=== PATIENT | female | born 1960 | race Caucasian/White ===

== ENCOUNTER 2020-06-22 08:49 | Emergency (ER) | payer OTHER ==
[~2020-06-22] VITALS: Ht 160 cm; Wt 78.0 kg
[2020-06-22 08:58] VITALS: BP 141/56
[2020-06-22 10:10] LABS: BASOPHILS % (AUTO) 0.6 % (0.0-2.0); EOSINOPHILS # (AUTO) 0.1 K/uL (0-0.4); EOSINOPHILS % (AUTO) 1.4 % (0.0-4.0); LYMPHOCYTES # (AUTO) 0.7 K/uL (2.5-16.5); LYMPHOCYTES % (AUTO) 9.9 % (20.5-51.1); MEAN CORPUSCULAR HEMOGLOBIN 31 pg (27-31); MEAN CORPUSCULAR HGB CONC 33 g/dL (33-37); MEAN CORPUSCULAR VOLUME 93.4 fL (80-94); MONOCYTES # (AUTO) 0.4 K/uL (0.8-1.0); MONOCYTES % (AUTO) 6.4 % (1.7-9.3); NEUTROPHILS # (AUTO) 5.6 K/uL (1.8-7.7); NEUTROPHILS % (AUTO) 81.7 % (42.2-75.2); PLATELET COUNT (AUTO) 225 K/uL (140-450); RED CELL DISTRIBUTION WIDTH 14.3 % (11.6-13.7); WHITE BLOOD COUNT (AUTO) 6.8 K/uL (4.8-10.8)
[2020-06-22 10:14] LABS: HEMATOCRIT 15.9 % (36-48); HEMOGLOBIN 5.3 g/dL (12.0-16.0)
[2020-06-22 10:33] LABS: ALBUMIN 2.9 g/dL (3.4-5.0); ANION GAP 23.5 (8-16); CARBON DIOXIDE 18.1 mmol/L (21-32); POTASSIUM 4.6 mmol/L (3.5-5.1); TOTAL BILIRUBIN 0.4 mg/dL (0.0-1.0)
[2020-06-22 10:35] LABS: CREATININE 13.6 mg/dL (0.6-1.3)
[2020-06-22 10:43] LABS: APPEARANCE,URINE CLEAR (CLEAR); BILIRUBIN,URINE NEGATIVE (NEGATIVE); BLOOD, URINE 1+ (NEGATIVE); COLOR,URINE YELLOW (YELLOW); LEUKOCYTE ESTERASE ,URINE NEGATIVE (NEGATIVE); NITRITE, URINE NEGATIVE (NEGATIVE); PH,URINE 7.5 (5.0-9.0); UGLUCOSE TRACE (NEGATIVE)
[2020-06-22 10:51] LABS: RBC,URINE 0-5 /HPF (0-5); WBC,URINE 0-5 /HPF (0-5)
[2020-06-22] MEDS ORDERED: SILVER NITRATE APPLICATOR 1 EA SWAB TP ONE ×4 (19:40→20:00)
[2020-06-22] MEDS ORDERED: PHENYLEPHRINE 1% 15 ML BTL NS ONE ×2 (19:42→20:10)
[2020-06-22] MEDS ORDERED: FUROSEMIDE 40 MG/4 ML VIAL IVP ONE (19:45)
[2020-06-22] MEDS ORDERED: DESMOPRESSIN 4 MCG/ML AMP IV SCH (20:05)
[2020-06-22] MEDS ORDERED: LABETALOL 100 MG/20 ML VIAL IVP ONE (20:05)
[2020-06-22] MEDS ORDERED: LIDOCAINE/EPI 1% 1:100000 20 ML VIAL INJ ONE (20:19)
[2020-06-22 23:50] VITALS: BP 151/76
== END 2020-06-22 23:10 | disposition short-term general hospital (02) ==
LOC: MED 08:49
DX: I12.9 Hypertensive chronic kidney disease with stage 1 through stage 4 chronic kidney disease, or unspecified chronic kidney disease (principal); N18.9 Chronic kidney disease, unspecified; E07.9 Disorder of thyroid, unspecified; D64.9 Anemia, unspecified; R10.9 Unspecified abdominal pain; K52.9 Noninfective gastroenteritis and colitis, unspecified; T80.89XA Other complications following infusion, transfusion and therapeutic injection, initial encounter
CPT/HCPCS: 30901; 36415; 74176; 80053; 81001; 81025; 83690; 85025; 86886; 86900; 86901; 86920; 87426; 96374; 96375; 99291; J1940; J2597; J3490; P9016; J2001